=== PATIENT | female | born 1990 | race Caucasian/White ===

== ENCOUNTER 2018-09-12 04:51 | Inpatient (IN) | payer BC ==
[2018-09-14] MEDS ORDERED: Ibuprofen 800 MG TAB PO PRN (20:02)
[2018-09-14] MEDS ORDERED: NS w/ Oxytocin 10 units 500 ML IV SCH (20:02)
[2018-09-14] MEDS ORDERED: NS / Oxytocin 40 units/1000ml 1,000 ML IV PRN (20:02)
[2018-09-14] MEDS ORDERED: Promethazine HCl 25 MG/ML VIAL IM PRN (20:02)
[2018-09-14] MEDS ORDERED: Butorphanol Tartrate 1 MG/ML VIAL SLOW IVP PRN (20:02)
[2018-09-14] MEDS ORDERED: Misoprostol 200 MCG TAB PR PRN (20:02)
[2018-09-14] MEDS ORDERED: HYDROcodone/Acetaminophen 5/325 mg Tablet PO PRN ×2 (20:02)
[2018-09-14] MEDS ORDERED: Penicillin G Potassium 5 MILL.UNITS in Sodium Chloride 0.9% 100 ML IVPB SCH (20:02)
[2018-09-14] MEDS ORDERED: Lidocaine 1% (PF) 30 ML VIAL SC PRN (20:02)
[2018-09-14] MEDS ORDERED: Ondansetron PF 4 MG/2 ML Vial IVP PRN (20:02)
[2018-09-14] MEDS ORDERED: Docusate 100 MG CAP PO PRN (20:02)
[2018-09-14] MEDS ORDERED: Acetaminophen 500 MG TAB PO PRN (20:02)
[2018-09-14] MEDS ORDERED: Diphenoxylate HCl/Atropine Tablet PO PRN ×2 (20:02)
[2018-09-14 20:34] VITALS: BMI 31.6
[2018-09-14] MEDS: Misoprostol 100 MCG TAB VAG SCH (21:01)
[2018-09-14] MEDS: Lactated Ringer's 1,000 ML IV SCH (21:01)
[2018-09-14] MEDS: Penicillin G 2.5 MILL.units 2.5 MILL.UNITS in Premix Bag 1 BAG IVPB SCH ×2 (21:10→21:59)
[2018-09-14 21:19] LABS: Hemoglobin 12.4 g/dL (12.0-16.0); Mean Corpuscular HGB CONC 32.3 g/dL (32.0-36.0); Mean Corpuscular Hemoglobin 30.4 pg (27.0-31.0); Mean Corpuscular Volume 94.2 fL (78.0-98.0); Mean Platelet Volume 8.2 fL (7.4-10.4); Platelet Count 261 thou/uL (130-400); RBC Distribution Width 11.9 % (11.5-14.5); Red Blood Cell (RBC) Count 4.08 mill/uL (4.20-5.40); White Blood Cell (WBC) Count 13.4 thou/uL (4.8-10.8)
[2018-09-14] MEDS: Clindamycin/D5W 900 MG in Premix Bag 1 BAG IVPB SCH (21:49)
[2018-09-14 21:59] LABS: Syphilis Antibody Nonreactive (Nonreactive)
[2018-09-14 23:10] LABS: HBSAg Index 0.27 S/CO (0-0.99); Hep B Surf Ag Non-Reactive S/CO (NonReactive)
[2018-09-15] MEDS: Misoprostol 100 MCG TAB VAG SCH ×4 (00:25→16:26)
[2018-09-15] MEDS: Clindamycin/D5W 900 MG in Premix Bag 1 BAG IVPB SCH ×2 (06:00→14:00)
[2018-09-15] MEDS: Lactated Ringer's 1,000 ML IV SCH ×3 (06:01→16:25)
[2018-09-15] MEDS ORDERED: Fentanyl 4 mcg/Bup 0.1% Cadd 100 ML ONE ×2 (08:40→18:00)
[2018-09-15] MEDS: ePHEDrine/0.9% NaCl/PF SYRINGE 50 mg/10 ml SLOW IVP PRN ×2 (10:51→11:01)
[2018-09-15] MEDS ORDERED: Promethazine HCl 25 MG/ML VIAL IM PRN (10:58)
[2018-09-15] MEDS ORDERED: Acetaminophen 325 MG TAB PO PRN (10:58)
[2018-09-15] MEDS ORDERED: Naloxone HCl 0.4 mg/ml Vial IVP PRN ×2 (10:58)
[2018-09-15] MEDS ORDERED: Ondansetron PF 4 MG/2 ML Vial IVP PRN ×2 (10:58→18:53)
[2018-09-15] MEDS ORDERED: Lactated Ringer's 500 ML IV PRN (10:58)
[2018-09-15] MEDS ORDERED: Eucerin (Mineral Oil/Petrolatum,White) 30 gm Jar TOP PRN (10:58)
[2018-09-15] MEDS ORDERED: diphenhydrAMINE 50 MG/ML VIAL IVP PRN (10:58)
[2018-09-15] MEDS ORDERED: Fentanyl 4 mcg/Bupivacaine 0.1% Cassette 100 ML EPIDURAL SCH (11:00)
[2018-09-15] MEDS ORDERED: Communication Order-Pharmacy FS SCH (11:00)
[2018-09-15] MEDS ORDERED: diphenhydrAMINE 25 MG CAP PO PRN (18:53)
[2018-09-15] MEDS ORDERED: Zolpidem Tartrate 5 MG TAB PO PRN (18:53)
[2018-09-15] MEDS ORDERED: Milk Of Magnesia 30 ML UDCUP PO PRN (18:53)
[2018-09-15] MEDS ORDERED: Acetaminophen/Codeine 30-300mg Tablet PO PRN ×2 (18:53)
[2018-09-15] MEDS ORDERED: Lanolin Ointment 7 GM TUBE TOP PRN (18:53)
[2018-09-15] MEDS ORDERED: Bisacodyl 10 MG SUPP PR PRN (18:53)
[2018-09-15] MEDS ORDERED: Preparation H Ointment 28 GM TUBE PR PRN (18:53)
[2018-09-15] MEDS ORDERED: Benzocaine/Menthol 20-0.5% 60 ML CAN TOP PRN (18:53)
[2018-09-15] MEDS ORDERED: Misoprostol 200 MCG TAB VAG PRN (18:53)
[2018-09-15] MEDS ORDERED: NS / Oxytocin 40 units/1000ml 1,000 ML IV SCH (19:00)
[2018-09-15] MEDS: Ibuprofen 800 MG TAB PO SCH (21:21)
[2018-09-15] MEDS: Docusate Calcium (SURFAK) 240 MG CAP PO SCH (21:21)
[2018-09-16] MEDS: Ibuprofen 800 MG TAB PO SCH ×3 (06:13→21:14)
[2018-09-16] MEDS ORDERED: Adacel (T-DAP) 0.5 ML VIAL IM ONE (09:00)
[2018-09-16] MEDS: Prenatal Vitamin 1 TAB PO SCH (09:07)
[2018-09-16] MEDS: Docusate Calcium (SURFAK) 240 MG CAP PO SCH ×2 (09:07→21:14)
[2018-09-17] MEDS: Ibuprofen 800 MG TAB PO SCH ×2 (05:01→15:02)
[2018-09-17 09:10] VITALS: BP 106/62; TEMP 97.9
[2018-09-17] MEDS: Ferrous Sulfate 325 MG TAB PO SCH ×2 (09:30→18:53)
[2018-09-17] MEDS: Docusate Calcium (SURFAK) 240 MG CAP PO SCH (09:31)
[2018-09-17] MEDS: Prenatal Vitamin 1 TAB PO SCH (09:31)
[2018-09-17] MEDS ORDERED: ePHEDrine/0.9% NaCl/PF SYRINGE 50 mg/10 ml ONE (09:50)
[2018-09-17] MEDS ORDERED: Bupivacaine HCl 0.5%/Epinephrine 1:200,000/PF 30 ml Vial ONE (09:50)
== END 2018-09-17 19:30 | disposition home or self-care (01) | DRG 807 ==
LOC: EDSTATUS 12:03 → L&D 09-14 19:56 → 3SW 09-15 20:53
PROVIDERS: ADMIT Obstetrics & Gynecology; ATTEND Obstetrics & Gynecology
PROC: 10D07Z6 Extraction of Products of Conception, Vacuum, Via Natural or Artificial Opening (ICD-10-PCS; principal; 2018-09-15)
PROC: 0KQM0ZZ Repair Perineum Muscle, Open Approach (ICD-10-PCS; 2018-09-15)
PROC: 3E033VJ Introduction of Other Hormone into Peripheral Vein, Percutaneous Approach (ICD-10-PCS; 2018-09-15)
PROC: 3E0P7VZ Introduction of Hormone into Female Reproductive, Via Natural or Artificial Opening (ICD-10-PCS; 2018-09-15)
PROC: 10907ZC Drainage of Amniotic Fluid, Therapeutic from Products of Conception, Via Natural or Artificial Opening (ICD-10-PCS; 2018-09-15)
DX: O48.0 Post-term pregnancy (principal); Z37.0 Single live birth; Z3A.40 40 weeks gestation of pregnancy; O99.824 Streptococcus B carrier state complicating childbirth
CPT/HCPCS: 36415; 51702; 85027; 86780; 86850; 86900; 86901; 87340; J0670; J2001; J3490